=== PATIENT | female | born 1955 | race Caucasian/White ===

== ENCOUNTER → 2018-11-13 | Day surgery (SDC) | payer BC ==
[2018-11-12 13:04] LABS: BASOPHILS # (AUTO) 0.1 (0.0-0.1); BASOPHILS % 1.1 % (0.0-1.0); EOSINOPHILS # (AUTO) 0.2 (0.0-0.4); EOSINOPHILS % 2.9 % (0.0-6.0); HEMATOCRIT 39.1 % (34.2-44.1); HEMOGLOBIN 13.4 g/dL (12.0-16.0); LYMPHOCYTES # (AUTO) 1.5 (1.0-3.2); LYMPHOCYTES % 22.9 % (18.0-39.1); MEAN CORPUSCULAR HEMOGLOBIN 32.6 pg (28-32); MEAN CORPUSCULAR HGB CONC 34.3 g/dL (31-35); MEAN CORPUSCULAR VOLUME 95.1 fL (81-99); MONOCYTES # (AUTO) 0.8 (0.2-0.8); MONOCYTES % 11.4 % (4.4-11.3); NEUTROPHILS # (AUTO) 4.1 (2.1-6.9); NEUTROPHILS % 61.2 % (38.7-80.0); PLATELET COUNT 228 x10e3/uL (140-360); RED BLOOD COUNT 4.11 x10e6/uL (3.6-5.1); RED CELL DISTRIBUTION WIDTH 12.8 % (11.7-14.4)
--- NOTE | 2018-11-12 15:24 | Diagnostic Imaging Report ---
EXAMINATION: CHEST 2 VIEWS INDICATION: Pre-op. COMPARISON: None FINDINGS: Apical lordotic projection. TUBES and LINES: None. LUNGS: Lungs are moderately inflated. Opacity projects over the right lower lung, partially obscured by overlying hemidiaphragm. Minimal patchy dependent opacity, likely atelectasis. There is no evidence of pneumonia or pulmonary edema. PLEURA: No pleural effusion or pneumothorax. HEART AND MEDIASTINUM: The cardiomediastinal silhouette is unremarkable. BONES AND SOFT TISSUES: No acute osseous abnormality. UPPER ABDOMEN: No free air under the diaphragm. IMPRESSION: No acute radiographic abnormality. Opacity projecting over the right lower lung, likely represents pulmonary vessel partially obscured by overlying hemidiaphragm. However, underlying pulmonary nodule is possible. Suggest repeat radiograph with increased inspiration for further evaluation. Signed by: Dr. Suraj Younger MD on 11/12/2018 3:21 PM
[~2018-11-13] MED LIST: CEFAZOLIN SOD 1 GM/NS 50ML 50 ML IV ONE; COSAMIN DS TAB1 EACH PO; DEXAMETHASONE SOD PHOS INJ 4 MG/ML VIAL ONE; FENTANYL CITRATE/PF 100MCG/2 ML INJ ONE; LEVOTHYROXINE50 MCG PO; LIDOCAINE HCL 2% LOCAL INJ 5 ML SDV VIAL INJ ONE; MIDAZOLAM HCL 2 MG/2 ML VIAL ONE; NABUMETONE500 MG PO; ONDANSETRON HCL INJ 2MG/ML 2ML 2 MG/ML VIAL ONE; PANTOPRAZOLE SO40 MG PO; PREMARIN0.625 MG PO; PROPOFOL IV EMULSION 10 MG/ML 20 ML VIAL ONE; SEVOFLURANE INHAL SOLN 250 ML PEN BTL ONE
--- OUTSIDE RECORDS SUMMARY | 2018-11-13 05:10 | XMS REPORT ---
Author Author [facility] Address Unknown Phone Unavailable Care Team Providers Care Recreation Aide Name Role Phone Hanna LOU Unavailable Unavailable Problems This patient has no known problems. Allergies, Adverse Reactions, Alerts This patient has no known allergies or adverse reactions. Medications This patient has no known medications. Results Test Description Test Time Test Comments Text Results Atomic Results Result Comments CHEST 2 VIEWS 2018-11-12 15:17:00 [place] [id number] Patient Name: RUBEN CHEN MR #: [id number] : 1955 Age/Sex: 63/F Req #: [id number] Adm Physician: Ordered by: Hanna LOU DPM Report #: [id number] Location: OR Room/Bed: Procedure: [id number] DX/CHEST 2 VIEWS Exam Date: Exam Time: REPORT STATUS: Signed EXAMINATION: CHEST 2 VIEWS INDICATION: Pre-op. COMPARISON: None FINDINGS: Apical lordotic projection. TUBES and LINES: None. LUNGS: Lungs are moderately inflated. Opacity projects over the right lower lung, partially obscured by overlying hemidiaphragm. Minimal patchy dependent opacity, likely atelectasis. There is no evidence of pneumonia or pulmonary edema. PLEURA: No pleural effusion or pneumothorax. HEART AND MEDIASTINUM: The cardiomediastinal silhouette is unremarkable. BONES AND SOFT TISSUES: No acute osseous abnormality. UPPER ABDOMEN: No free air under the diaphragm. IMPRESSION: No acute radiographic abnormality. Opacity projecting over the right lower lung, likely represents pulmonary vessel partially obscured by overlying hemidiaphragm. However, underlying pulmonary nodule is possible. Suggest repeat radiograph with increased inspiration for further evaluation. Signed by: Dr. Carole Forbes MD on 11/12/2018 3:21 PM Dictated By: CAROLE FORBES MD [id number] Transcribed By: KUSUM on 11/12/18 1521 COPY TO: Hanna LOU DPM
[2018-11-13 08:15] VITALS: BP 115/73
--- NOTE | 2018-11-13 18:19 | Operative Report ---
DATE OF PROCEDURE: 11/13/2018 SURGEON: Chapincito Arora DPM ([place]) PREOPERATIVE DIAGNOSES: 1. Neuroma, second interspace, left. 2. Neuroma, third interspace, left. POSTOPERATIVE DIAGNOSES: 1. Neuroma, second interspace, left. 2. Neuroma, third interspace, left. OPERATIVE PROCEDURES: Excision of neuroma in second interspace and excision of neuroma in third interspace, left foot. DESCRIPTION OF PROCEDURE: The patient was placed on the OR table in the supine position. The left lower extremity was prepped and draped in the usual manner. A general anesthetic was administered and hemostasis accomplished using a pneumatic cuff set at 350 mmHg at thigh level. Procedure #1: Excision of neuroma, second interspace. An incision approximately 3 cm long was made in the interspace on the dorsal aspect between the second and third toes. The incision was deepened. Blood vessels were either ligated or retracted. The intermetatarsal ligament between the second and third was resected with Metzenbaum scissors. This exposed the neuroma. It was isolated and both distal branches were resected and then with metatarsal head retracted, the neuroma was then removed in total. The wound was then flushed with sterile saline solution. Subcutaneous tissue closed with 3-0 Vicryl and the skin with 4-0 nylon. Procedure #2: Excision of neuroma, third interspace. An incision approximately 3 cm long was made in the interspace on the dorsal aspect between the second and third toes. The incision was deepened. Blood vessels were either ligated or retracted. The intermetatarsal ligament between the second and third was resected with Metzenbaum scissors. This exposed the neuroma. It was isolated and both distal branches were resected and then with metatarsal head retracted, the neuroma was then removed in total. The wound was then flushed with sterile saline solution. Subcutaneous tissue closed with 3-0 Vicryl and the skin with 4-0 nylon. Following the two procedures, 9 mL of 0.5 Marcaine and 1 mL of Decadron was injected to minimize postop pain. A sterile compression dressing was then applied. At this time, the pneumatic cuff was released and reflex hyperemia was observed to all digits. The patient tolerated the procedures and anesthesia well and left the OR to recovery in good condition with vital signs stable. S MAULIK Varela ([place])L /[id number]
== END | disposition home or self-care (01) ==
LOC: OR 05:00
PROVIDERS: ATTEND Podiatrist Foot & Ankle Surgery
DX: G57.62 Lesion of plantar nerve, left lower limb (principal); E03.9 Hypothyroidism, unspecified; K21.9 Gastro-esophageal reflux disease without esophagitis; Z01.810 Encounter for preprocedural cardiovascular examination; Z01.812 Encounter for preprocedural laboratory examination; Z01.818 Encounter for other preprocedural examination
CPT/HCPCS: 28080 ×2; 36415; 71046; 85025; 93005; J0690; J1100; J2001; J2250; J2405; J2704